=== PATIENT | female | born 1995 | race Caucasian/White ===

== ENCOUNTER 2016-04-23 14:37 | Emergency (ER) | payer BC ==
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
[2016-04-23 15:31] LABS: Benzodiazepine Urine Screen None Detected (None Detect)
[2016-04-23 15:50] VITALS: BP 130/78
[2016-04-23 17:17] LABS: Rapid HIV INT CONT QC Line Present; Rapid HIV Kit Lot# F209011
== END 2016-04-23 15:49 | disposition home or self-care (01) ==
LOC: ED 14:37
DX: Z04.8 Encounter for examination and observation for other specified reasons (principal)
CPT/HCPCS: 36415; 80307; 86703; 86706; 86803; 87340; 99282